=== PATIENT | female | born 1975 | race Caucasian/White ===

== ENCOUNTER → 2016-08-07 | Outpatient (CLI) | payer BC ==
--- NOTE | 2016-08-07 18:09 | CT ---
EXAMINATION TYPE: CT brain wo con DATE OF EXAM: 08/07/2016 5:30 PM COMPARISON: NONE HISTORY: Headaches x [address] DLP: 1076.00 mGycm Automated exposure control for dose reduction was used. FINDINGS: The ventricles and sulci appear normal. There is no mass effect nor midline shift. There is no sign o f intracranial hemorrhage. The calvarium is intact. There is a small mucous retention cyst in the rig ht maxillary sinus. IMPRESSION: Negative unenhanced head CT scan.
== END | disposition home or self-care (01) ==
LOC: RADCTMAIN 17:09
PROVIDERS: ATTEND Internal Medicine
DX: R51 Headache (principal)
CPT/HCPCS: 70450